=== PATIENT | male | born 1930 | race African-American/Black ===

== ENCOUNTER 2017-11-10 20:30 | Inpatient (IN) | payer MEDICARE, MEDICAID ==
[~2017-11-10] VITALS: Ht 177.8 cm; Wt 83.5 kg
[2017-11-10 20:30] VITALS: BP 137/72
[~2017-11-10 20:30] MED LIST: AMLO10TA4 PO; ASPI-1159 PO; BRIM.2 LEFTEYE; FERR325T6 PO; LATA2.5D2 OP; LISI-604 PO; LOSA50TA3 PO; LOVA20TA2 PO; METF500T4 PO; OMEP20TA15 PO; TRAV2.5D LEFTEYE
[2017-11-10] MEDS ORDERED: DEXTROSE 50% WATER 50ML SYRINGE IV PRN (21:45)
[2017-11-10] MEDS ORDERED: CHLORPROMAZINE HCL 10 MG TABLET PO PRN (22:15)
[2017-11-10] MEDS ORDERED: DOCUSATE SODIUM 250MG CAPSULE PO PRN (22:15)
[2017-11-10] MEDS ORDERED: ONDANSETRON HCL 4MG TABLET PO PRN (22:15)
[2017-11-10] MEDS ORDERED: IPRATROPIUM/ALBUTEROL 0.5-3(2.5)MG/3ML NEB HHN PRN (22:15)
[2017-11-11] MEDS: METRONIDAZOLE 500MG TABLET PO SCH ×4 (01:48→22:44)
[2017-11-11] MEDS: HYDRALAZINE HCL 100MG TABLET PO SCH ×4 (01:48→22:00)
[2017-11-11] MEDS: LATANOPROST 0.005% OPHTH DROPS 2.5ML LEFTEYE SCH ×2 (01:49→22:47)
[2017-11-11] MEDS ORDERED: INSULIN LISPRO 100 UNITS/ML SUBCUT SCH ×2 (06:30→09:00)
[2017-11-11] MEDS: BLOOD SUGAR DIAGNOSTIC STRIP TEST SCH ×4 (06:30→21:00)
[2017-11-11 06:57] LABS: HEMATOCRIT. 33.5 % (42.0-52.0); HEMOGLOBIN. 11.1 g/dL (14.0-18.0); MEAN CORPUSCULAR HEMOGLOBIN 30.1 pg (28.0-32.0); PLATELET 310 x1000/uL (130-400); RED BLOOD CELL COUNT 3.68 mill/uL (4.7-6.1); RED CELL DISTRIBUTION WIDTH 14.5 % (11.6-14.6)
[2017-11-11] MEDS: OMEPRAZOLE 20MG CAPSULE EXTENDED RELEASE PO SCH (07:00)
[2017-11-11 07:21] LABS: CHLORIDE 104 mEq/L (98-107)
[2017-11-11 07:41] LABS: CARBON DIOXIDE 21 mEq/L (21-32); PREALBUMIN 17.3 mg/dL (20.0-40.0)
[2017-11-11 08:00] VITALS: BP 150/68
[2017-11-11] MEDS: INSULIN LISPRO (MEDIUM DOSE) 100 UNITS/ML SUBCUT SCH ×4 (09:00→21:00)
[2017-11-11] MEDS: BRIMONIDINE 0.2% OPHTH DROPS 5ML LEFTEYE SCH ×4 (09:44→22:47)
[2017-11-11] MEDS: ASPIRIN 325MG EC TABLET PO SCH (09:45)
[2017-11-11] MEDS: CARVEDILOL 3.125 MG TABLET PO SCH ×2 (09:46→21:00)
[2017-11-11] MEDS: METOCLOPRAMIDE HCL 10MG TABLET PO SCH ×3 (09:46→17:49)
[2017-11-11] MEDS: CARVEDILOL 12.5MG TABLET PO SCH ×2 (09:46→22:45)
[2017-11-11] MEDS: METFORMIN HCL 500MG TABLET PO SCH ×3 (09:46→17:49)
[2017-11-11] MEDS: LISINOPRIL 20MG TABLET PO SCH ×2 (09:47→23:16)
[2017-11-11] MEDS: AMLODIPINE 10MG TABLET PO SCH (09:47)
[2017-11-11] MEDS: CLOPIDOGREL 75MG TABLET PO SCH (09:47)
[2017-11-11 10:36] LABS: PLATELET ESTIMATE NORMAL
[2017-11-11 20:00] VITALS: BP 147/70
[2017-11-11] MEDS ORDERED: FAMOTIDINE 20MG TABLET PO SCH (21:00)
[2017-11-11] MEDS: ATORVASTATIN CALCIUM 40MG TABLET PO SCH (22:44)
[2017-11-12] MEDS: METRONIDAZOLE 500MG TABLET PO SCH ×3 (06:22→22:16)
[2017-11-12] MEDS: OMEPRAZOLE 20MG CAPSULE EXTENDED RELEASE PO SCH (06:22)
[2017-11-12] MEDS: INSULIN LISPRO (MEDIUM DOSE) 100 UNITS/ML SUBCUT SCH ×4 (06:23→21:00)
[2017-11-12] MEDS: HYDRALAZINE HCL 100MG TABLET PO SCH ×3 (06:23→22:00)
[2017-11-12] MEDS: BLOOD SUGAR DIAGNOSTIC STRIP TEST SCH ×4 (06:23→21:00)
[2017-11-12 07:25] LABS: HEMATOCRIT. 31.9 % (42.0-52.0); HEMOGLOBIN. 10.5 g/dL (14.0-18.0); MEAN CORPUSCULAR VOLUME 91.4 fL (80.0-94.0); MEAN PLATELET VOLUME 11.6 fl (7.4-10.4); PLATELET 294 x1000/uL (130-400); RED BLOOD CELL COUNT 3.49 mill/uL (4.7-6.1); RED CELL DISTRIBUTION WIDTH 14.4 % (11.6-14.6)
[2017-11-12 08:00] VITALS: BP 163/71
[2017-11-12] MEDS: BRIMONIDINE 0.2% OPHTH DROPS 5ML LEFTEYE SCH ×4 (09:15→22:17)
[2017-11-12] MEDS: METFORMIN HCL 500MG TABLET PO SCH ×3 (09:16→17:33)
[2017-11-12] MEDS: CLOPIDOGREL 75MG TABLET PO SCH (09:17)
[2017-11-12] MEDS: CARVEDILOL 12.5MG TABLET PO SCH ×2 (09:17→21:00)
[2017-11-12] MEDS: CARVEDILOL 3.125 MG TABLET PO SCH ×2 (09:17→21:00)
[2017-11-12] MEDS: LISINOPRIL 20MG TABLET PO SCH ×2 (09:18→21:00)
[2017-11-12] MEDS: METOCLOPRAMIDE HCL 10MG TABLET PO SCH ×3 (09:18→17:34)
[2017-11-12] MEDS: ASPIRIN 325MG EC TABLET PO SCH (09:18)
[2017-11-12] MEDS: AMLODIPINE 10MG TABLET PO SCH (09:18)
[2017-11-12 09:42] LABS: PLATELET ESTIMATE NORMAL
[2017-11-12] MEDS: ACETAMINOPHEN 325MG TABLET PO PRN (14:25)
[2017-11-12 20:00] VITALS: BP 111/45
[2017-11-12] MEDS: ATORVASTATIN CALCIUM 40MG TABLET PO SCH (22:16)
[2017-11-12] MEDS: LATANOPROST 0.005% OPHTH DROPS 2.5ML LEFTEYE SCH (22:17)
[2017-11-13 00:01] LABS: CLARITY URINE CLEAR (CLEAR); COLOR URINE YELLOW (YELLOW); KETONES URINE NEGATIVE (NEGATIVE); LEUKOCYTE ESTERASE URINE NEGATIVE (NEGATIVE); NITRITE URINE NEGATIVE (NEGATIVE); OCCULT BLOOD URINE NEGATIVE (NEGATIVE); PROTEIN URINE NEGATIVE (NEGATIVE); SPECIFIC GRAVITY URINE 1.015 (1.005-1.030)
[2017-11-13] MEDS: METRONIDAZOLE 500MG TABLET PO SCH ×3 (06:18→22:37)
[2017-11-13] MEDS: HYDRALAZINE HCL 100MG TABLET PO SCH ×3 (06:18→22:00)
[2017-11-13] MEDS: BLOOD SUGAR DIAGNOSTIC STRIP TEST SCH ×4 (06:19→21:00)
[2017-11-13] MEDS: OMEPRAZOLE 20MG CAPSULE EXTENDED RELEASE PO SCH (06:21)
[2017-11-13 07:05] LABS: HEMATOCRIT. 31.1 % (42.0-52.0); HEMOGLOBIN. 10.3 g/dL (14.0-18.0); MEAN CORPUSCULAR VOLUME 91.2 fL (80.0-94.0); MEAN PLATELET VOLUME 11.3 fl (7.4-10.4); PLATELET 278 x1000/uL (130-400); RED BLOOD CELL COUNT 3.42 mill/uL (4.7-6.1); RED CELL DISTRIBUTION WIDTH 14.3 % (11.6-14.6)
[2017-11-13 07:14] LABS: CARBON DIOXIDE 22 mEq/L (21-32); CHLORIDE 105 mEq/L (98-107); TOTAL IRON BINDING CAPACITY 165 ug/dL (250-450)
[2017-11-13 07:30] LABS: FOLIC ACID (FOLATE) SERUM 15.9 ng/mL (>5.38)
[2017-11-13] MEDS: INSULIN LISPRO (MEDIUM DOSE) 100 UNITS/ML SUBCUT SCH ×4 (07:34→21:00)
[2017-11-13 08:00] VITALS: BP 125/66
[2017-11-13] MEDS: CARVEDILOL 3.125 MG TABLET PO SCH ×2 (09:00→21:00)
[2017-11-13 09:14] LABS: PLATELET ESTIMATE NORMAL
[2017-11-13 12:00] VITALS: BP 125/66
[2017-11-13] MEDS: BRIMONIDINE 0.2% OPHTH DROPS 5ML LEFTEYE SCH ×4 (12:02→22:53)
[2017-11-13] MEDS: AMLODIPINE 10MG TABLET PO SCH (12:03)
[2017-11-13] MEDS: METFORMIN HCL 500MG TABLET PO SCH ×3 (12:03→17:00)
[2017-11-13] MEDS: ASPIRIN 325MG EC TABLET PO SCH (12:03)
[2017-11-13] MEDS: LISINOPRIL 20MG TABLET PO SCH (12:03)
[2017-11-13 12:04] LABS: PROSTRATE SPECIFIC AG TOTAL 0.22 ng/mL (0.0-4.0)
[2017-11-13] MEDS: METOCLOPRAMIDE HCL 10MG TABLET PO SCH ×3 (12:04→18:10)
[2017-11-13] MEDS: CLOPIDOGREL 75MG TABLET PO SCH (12:04)
[2017-11-13] MEDS: CARVEDILOL 12.5MG TABLET PO SCH ×2 (12:04→22:53)
[2017-11-13 14:57] VITALS: BP 128/59
[2017-11-13 20:00] VITALS: BP 135/53
[2017-11-13] MEDS: ATORVASTATIN CALCIUM 40MG TABLET PO SCH (22:37)
[2017-11-13] MEDS: LATANOPROST 0.005% OPHTH DROPS 2.5ML LEFTEYE SCH (22:53)
[2017-11-14] MEDS: LISINOPRIL 20MG TABLET PO SCH ×3 (00:36→21:53)
[2017-11-14] MEDS: HYDRALAZINE HCL 100MG TABLET PO SCH ×3 (06:00→22:48)
[2017-11-14] MEDS: BLOOD SUGAR DIAGNOSTIC STRIP TEST SCH ×4 (06:40→21:50)
[2017-11-14] MEDS: OMEPRAZOLE 20MG CAPSULE EXTENDED RELEASE PO SCH (06:40)
[2017-11-14] MEDS: INSULIN LISPRO (MEDIUM DOSE) 100 UNITS/ML SUBCUT SCH ×4 (06:44→21:00)
[2017-11-14 08:00] VITALS: BP 155/67
[2017-11-14] MEDS: AMLODIPINE 10MG TABLET PO SCH (10:50)
[2017-11-14] MEDS: ASPIRIN 325MG EC TABLET PO SCH (10:50)
[2017-11-14] MEDS: CLOPIDOGREL 75MG TABLET PO SCH (10:50)
[2017-11-14] MEDS: METOCLOPRAMIDE HCL 10MG TABLET PO SCH ×3 (10:50→16:54)
[2017-11-14] MEDS: CARVEDILOL 3.125 MG TABLET PO SCH ×2 (10:51→21:53)
[2017-11-14] MEDS: METFORMIN HCL 500MG TABLET PO SCH ×3 (10:51→16:53)
[2017-11-14] MEDS: CARVEDILOL 12.5MG TABLET PO SCH ×2 (10:51→21:54)
[2017-11-14] MEDS: BRIMONIDINE 0.2% OPHTH DROPS 5ML LEFTEYE SCH ×4 (10:52→21:52)
[2017-11-14 13:40] VITALS: BP 108/48
[2017-11-14 20:00] VITALS: BP 128/64
[2017-11-14] MEDS: ATORVASTATIN CALCIUM 40MG TABLET PO SCH (21:52)
[2017-11-14] MEDS: LATANOPROST 0.005% OPHTH DROPS 2.5ML LEFTEYE SCH (21:56)
[2017-11-15] MEDS: BLOOD SUGAR DIAGNOSTIC STRIP TEST SCH ×4 (06:27→21:47)
[2017-11-15] MEDS: HYDRALAZINE HCL 100MG TABLET PO SCH ×3 (06:28→22:00)
[2017-11-15] MEDS: INSULIN LISPRO (MEDIUM DOSE) 100 UNITS/ML SUBCUT SCH ×4 (06:36→21:54)
[2017-11-15 08:00] VITALS: BP 126/52
[2017-11-15] MEDS: BRIMONIDINE 0.2% OPHTH DROPS 5ML LEFTEYE SCH ×4 (08:21→21:46)
[2017-11-15] MEDS: FAMOTIDINE 20MG TABLET PO SCH (08:22)
[2017-11-15] MEDS: METOCLOPRAMIDE HCL 10MG TABLET PO SCH ×3 (08:22→17:25)
[2017-11-15] MEDS: METFORMIN HCL 500MG TABLET PO SCH ×3 (08:22→17:25)
[2017-11-15] MEDS: ASPIRIN 325MG EC TABLET PO SCH (08:22)
[2017-11-15] MEDS: CLOPIDOGREL 75MG TABLET PO SCH (08:22)
[2017-11-15] MEDS: LACTULOSE 20G/30ML UDC PO SCH ×3 (11:14→13:38)
[2017-11-15] MEDS: AMLODIPINE 10MG TABLET PO SCH (11:15)
[2017-11-15] MEDS: CARVEDILOL 3.125 MG TABLET PO SCH ×2 (11:15→21:46)
[2017-11-15] MEDS: LISINOPRIL 20MG TABLET PO SCH ×2 (11:16→22:59)
[2017-11-15] MEDS: CARVEDILOL 12.5MG TABLET PO SCH ×2 (11:16→21:46)
[2017-11-15] MEDS ORDERED: DOCUSATE SODIUM 250MG CAPSULE PO PRN (15:45)
[2017-11-15 19:51] VITALS: BP 135/67
[2017-11-15] MEDS: ATORVASTATIN CALCIUM 40MG TABLET PO SCH (21:44)
[2017-11-15] MEDS: LATANOPROST 0.005% OPHTH DROPS 2.5ML LEFTEYE SCH (21:46)
[2017-11-15] MEDS: POLYETHYLENE GLYCOL 3350 (17GM) 1 DOSE PACK PO SCH (21:47)
[2017-11-16] MEDS: HYDRALAZINE HCL 100MG TABLET PO SCH ×3 (05:47→22:00)
[2017-11-16 06:16] LABS: BASOPHILS % 0.8 % (0.0-2.0); EOSINOPHILS % 1.2 % (0.0-5.0); HEMATOCRIT. 33.6 % (42.0-52.0); HEMOGLOBIN. 11.2 g/dL (14.0-18.0); LYMPHOCYTES % 18.8 % (20.0-50.0); MEAN CORPUSCULAR HEMOGLOBIN 30.4 pg (28.0-32.0); MEAN CORPUSCULAR VOLUME 91.1 fL (80.0-94.0); MONOCYTES % 14.6 % (2.0-8.0); NEUTROPHILS % 64.6 % (40.0-76.0); PLATELET 226 x1000/uL (130-400); RED BLOOD CELL COUNT 3.69 mill/uL (4.7-6.1); RED CELL DISTRIBUTION WIDTH 13.9 % (11.6-14.6)
[2017-11-16] MEDS: BLOOD SUGAR DIAGNOSTIC STRIP TEST SCH ×4 (06:38→21:25)
[2017-11-16] MEDS: INSULIN LISPRO (MEDIUM DOSE) 100 UNITS/ML SUBCUT SCH ×4 (06:39→21:00)
[2017-11-16 08:32] VITALS: BP 171/87
[2017-11-16] MEDS: CLOPIDOGREL 75MG TABLET PO SCH (08:45)
[2017-11-16] MEDS: LISINOPRIL 20MG TABLET PO SCH ×2 (08:45→21:21)
[2017-11-16] MEDS: METFORMIN HCL 500MG TABLET PO SCH ×3 (08:45→17:36)
[2017-11-16] MEDS: METOCLOPRAMIDE HCL 10MG TABLET PO SCH ×3 (08:45→17:36)
[2017-11-16] MEDS: ASPIRIN 325MG EC TABLET PO SCH (08:45)
[2017-11-16] MEDS: FAMOTIDINE 20MG TABLET PO SCH (08:46)
[2017-11-16] MEDS: AMLODIPINE 10MG TABLET PO SCH (08:46)
[2017-11-16] MEDS: CARVEDILOL 12.5MG TABLET PO SCH ×2 (08:46→21:00)
[2017-11-16] MEDS: CARVEDILOL 3.125 MG TABLET PO SCH ×2 (08:47→22:56)
[2017-11-16] MEDS: BRIMONIDINE 0.2% OPHTH DROPS 5ML LEFTEYE SCH ×4 (08:49→21:25)
[2017-11-16 19:11] LABS: 25-HYDROXY VITAMIN D3 7.2 ng/mL (.)
[2017-11-16 20:00] VITALS: BP 130/62
[2017-11-16] MEDS: POLYETHYLENE GLYCOL 3350 (17GM) 1 DOSE PACK PO SCH (21:00)
[2017-11-16] MEDS: ATORVASTATIN CALCIUM 40MG TABLET PO SCH (21:21)
[2017-11-16] MEDS: LATANOPROST 0.005% OPHTH DROPS 2.5ML LEFTEYE SCH (21:24)
[2017-11-17 06:11] LABS: BASOPHILS % 0.5 % (0.0-2.0); EOSINOPHILS % 1.4 % (0.0-5.0); HEMATOCRIT. 32.2 % (42.0-52.0); HEMOGLOBIN. 10.7 g/dL (14.0-18.0); LYMPHOCYTES % 21.2 % (20.0-50.0); MEAN CORPUSCULAR HEMOGLOBIN 30.3 pg (28.0-32.0); MEAN CORPUSCULAR VOLUME 91.6 fL (80.0-94.0); MEAN PLATELET VOLUME 11.2 fl (7.4-10.4); MONOCYTES % 13.7 % (2.0-8.0); NEUTROPHILS % 63.2 % (40.0-76.0); PLATELET 209 x1000/uL (130-400); RED BLOOD CELL COUNT 3.52 mill/uL (4.7-6.1); RED CELL DISTRIBUTION WIDTH 13.9 % (11.6-14.6)
[2017-11-17] MEDS: HYDRALAZINE HCL 100MG TABLET PO SCH ×3 (06:19→22:00)
[2017-11-17] MEDS: BLOOD SUGAR DIAGNOSTIC STRIP TEST SCH ×4 (06:19→21:58)
[2017-11-17] MEDS: INSULIN LISPRO (MEDIUM DOSE) 100 UNITS/ML SUBCUT SCH ×4 (06:20→21:00)
[2017-11-17 07:27] LABS: AMMONIA 55 uMol/L (<32)
[2017-11-17 08:00] VITALS: BP 148/62
[2017-11-17 08:03] LABS: AMYLASE 115 IU/L (25-115); CARBON DIOXIDE 24 mEq/L (21-32); CHLORIDE 105 mEq/L (98-107)
[2017-11-17] MEDS: BRIMONIDINE 0.2% OPHTH DROPS 5ML LEFTEYE SCH ×4 (09:37→21:51)
[2017-11-17] MEDS: METFORMIN HCL 500MG TABLET PO SCH ×3 (09:38→16:36)
[2017-11-17] MEDS: FAMOTIDINE 20MG TABLET PO SCH (09:38)
[2017-11-17] MEDS: CARVEDILOL 3.125 MG TABLET PO SCH ×2 (09:39→22:07)
[2017-11-17] MEDS: CLOPIDOGREL 75MG TABLET PO SCH (09:39)
[2017-11-17] MEDS: ASPIRIN 325MG EC TABLET PO SCH (09:39)
[2017-11-17] MEDS: AMLODIPINE 10MG TABLET PO SCH (09:39)
[2017-11-17] MEDS: METOCLOPRAMIDE HCL 10MG TABLET PO SCH ×3 (09:40→16:35)
[2017-11-17] MEDS: LISINOPRIL 20MG TABLET PO SCH ×2 (09:41→22:08)
[2017-11-17] MEDS: CARVEDILOL 12.5MG TABLET PO SCH ×2 (09:41→21:00)
[2017-11-17] MEDS ORDERED: LACTULOSE 20G/30ML UDC PO SCH (14:30)
[2017-11-17] MEDS: LACTULOSE 20G/30ML UDC PO SCH (16:36)
[2017-11-17] MEDS ORDERED: ERGOCALCIFEROL 50000UNITS CAPSULE PO SCH (17:00)
[2017-11-17 20:00] VITALS: BP 112/39
[2017-11-17] MEDS: POLYETHYLENE GLYCOL 3350 (17GM) 1 DOSE PACK PO SCH (21:00)
[2017-11-17] MEDS: ATORVASTATIN CALCIUM 40MG TABLET PO SCH (21:49)
[2017-11-17] MEDS: LATANOPROST 0.005% OPHTH DROPS 2.5ML LEFTEYE SCH (21:51)
[2017-11-18] MEDS: HYDRALAZINE HCL 100MG TABLET PO SCH ×3 (05:53→22:46)
[2017-11-18] MEDS: INSULIN LISPRO (MEDIUM DOSE) 100 UNITS/ML SUBCUT SCH ×4 (05:56→21:00)
[2017-11-18] MEDS: BLOOD SUGAR DIAGNOSTIC STRIP TEST SCH ×4 (05:56→21:49)
[2017-11-18] MEDS: ACETAMINOPHEN 325MG TABLET PO PRN (08:04)
[2017-11-18 08:28] VITALS: BP 147/66
[2017-11-18 08:31] LABS: AMMONIA 62 uMol/L (<32)
[2017-11-18] MEDS: AMLODIPINE 10MG TABLET PO SCH (09:00)
[2017-11-18] MEDS: CARVEDILOL 12.5MG TABLET PO SCH ×2 (09:00→21:45)
[2017-11-18] MEDS: LISINOPRIL 20MG TABLET PO SCH ×2 (09:00→21:45)
[2017-11-18] MEDS: LACTULOSE 20G/30ML UDC PO SCH ×3 (09:00→16:27)
[2017-11-18] MEDS: CARVEDILOL 3.125 MG TABLET PO SCH ×2 (10:09→21:45)
[2017-11-18] MEDS: METOCLOPRAMIDE HCL 10MG TABLET PO SCH ×3 (10:09→16:32)
[2017-11-18] MEDS: FAMOTIDINE 20MG TABLET PO SCH (10:09)
[2017-11-18] MEDS: METFORMIN HCL 500MG TABLET PO SCH ×3 (10:09→16:32)
[2017-11-18] MEDS: ASPIRIN 325MG EC TABLET PO SCH (10:09)
[2017-11-18] MEDS: CLOPIDOGREL 75MG TABLET PO SCH (10:09)
[2017-11-18] MEDS: BRIMONIDINE 0.2% OPHTH DROPS 5ML LEFTEYE SCH ×4 (10:12→21:46)
[2017-11-18 10:30] VITALS: BP_SYST 118; BP_SYST 139; BP_SYST 146; BP_DIAS 58; BP_DIAS 63; BP_DIAS 68
[2017-11-18 20:00] VITALS: BP 131/67
[2017-11-18] MEDS: POLYETHYLENE GLYCOL 3350 (17GM) 1 DOSE PACK PO SCH (21:00)
[2017-11-18] MEDS: ATORVASTATIN CALCIUM 40MG TABLET PO SCH (21:45)
[2017-11-18] MEDS: LATANOPROST 0.005% OPHTH DROPS 2.5ML LEFTEYE SCH (21:48)
[2017-11-19 05:44] LABS: BASOPHILS % 0.8 % (0.0-2.0); EOSINOPHILS % 1.3 % (0.0-5.0); HEMATOCRIT. 30.2 % (42.0-52.0); HEMOGLOBIN. 10.1 g/dL (14.0-18.0); MEAN CORPUSCULAR HEMOGLOBIN 30.8 pg (28.0-32.0); MEAN CORPUSCULAR VOLUME 91.5 fL (80.0-94.0); MONOCYTES % 14.7 % (2.0-8.0); NEUTROPHILS % 62.2 % (40.0-76.0); PLATELET 193 x1000/uL (130-400)
[2017-11-19] MEDS: HYDRALAZINE HCL 100MG TABLET PO SCH ×3 (05:44→21:09)
[2017-11-19] MEDS: INSULIN LISPRO (MEDIUM DOSE) 100 UNITS/ML SUBCUT SCH ×4 (05:44→21:08)
[2017-11-19] MEDS: BLOOD SUGAR DIAGNOSTIC STRIP TEST SCH ×4 (05:44→21:00)
[2017-11-19 05:57] LABS: CARBON DIOXIDE 24 mEq/L (21-32); CHLORIDE 103 mEq/L (98-107)
[2017-11-19 06:05] LABS: AMMONIA 29 uMol/L (<32)
[2017-11-19 08:17] VITALS: BP 145/50
[2017-11-19] MEDS: LACTULOSE 20G/30ML UDC PO SCH ×3 (08:26→16:30)
[2017-11-19] MEDS: METFORMIN HCL 500MG TABLET PO SCH ×3 (08:39→16:27)
[2017-11-19] MEDS: ASPIRIN 325MG EC TABLET PO SCH (08:40)
[2017-11-19] MEDS: CARVEDILOL 3.125 MG TABLET PO SCH ×2 (08:40→21:09)
[2017-11-19] MEDS: FAMOTIDINE 20MG TABLET PO SCH (08:40)
[2017-11-19] MEDS: CARVEDILOL 12.5MG TABLET PO SCH ×2 (08:41→21:12)
[2017-11-19] MEDS: AMLODIPINE 10MG TABLET PO SCH (08:41)
[2017-11-19] MEDS: CLOPIDOGREL 75MG TABLET PO SCH (08:41)
[2017-11-19] MEDS: LISINOPRIL 20MG TABLET PO SCH ×2 (08:42→21:13)
[2017-11-19] MEDS: BRIMONIDINE 0.2% OPHTH DROPS 5ML LEFTEYE SCH ×4 (08:42→22:59)
[2017-11-19] MEDS: METOCLOPRAMIDE HCL 10MG TABLET PO SCH ×3 (08:42→16:27)
[2017-11-19] MEDS ORDERED: CHLORPROMAZINE HCL 25 MG TABLET PO PRN (18:30)
[2017-11-19 20:45] VITALS: BP 117/59
[2017-11-19] MEDS: POLYETHYLENE GLYCOL 3350 (17GM) 1 DOSE PACK PO SCH (21:00)
[2017-11-19] MEDS: ATORVASTATIN CALCIUM 40MG TABLET PO SCH (21:09)
[2017-11-19] MEDS: LATANOPROST 0.005% OPHTH DROPS 2.5ML LEFTEYE SCH (22:59)
[2017-11-20] MEDS: HYDRALAZINE HCL 100MG TABLET PO SCH ×2 (05:24→13:14)
[2017-11-20] MEDS: BLOOD SUGAR DIAGNOSTIC STRIP TEST SCH ×2 (06:30→11:15)
[2017-11-20 08:20] VITALS: BP 103/36
[2017-11-20 08:43] LABS: AMMONIA 48 uMol/L (<32)
[2017-11-20] MEDS: INSULIN LISPRO (MEDIUM DOSE) 100 UNITS/ML SUBCUT SCH ×2 (09:00→12:20)
[2017-11-20] MEDS: AMLODIPINE 10MG TABLET PO SCH (09:51)
[2017-11-20] MEDS: CLOPIDOGREL 75MG TABLET PO SCH (09:52)
[2017-11-20] MEDS: CARVEDILOL 12.5MG TABLET PO SCH (09:52)
[2017-11-20] MEDS: CARVEDILOL 3.125 MG TABLET PO SCH (09:52)
[2017-11-20] MEDS: FAMOTIDINE 20MG TABLET PO SCH (09:52)
[2017-11-20] MEDS: LISINOPRIL 20MG TABLET PO SCH (09:52)
[2017-11-20] MEDS: METFORMIN HCL 500MG TABLET PO SCH ×2 (09:53→13:14)
[2017-11-20] MEDS: ASPIRIN 325MG EC TABLET PO SCH (09:53)
[2017-11-20] MEDS: BRIMONIDINE 0.2% OPHTH DROPS 5ML LEFTEYE SCH ×2 (09:53→13:15)
[2017-11-20 15:51] VITALS: BP 133/79
[2017-11-20] MEDS ORDERED: ATORVASTATIN CALCIUM 10MG TABLET PO SCH (21:00)
== END 2017-11-20 16:10 | DRG 280 ==
PROVIDERS: ADMIT Physical Medicine & Rehabilitation Spinal Cord Injury Medicine; ATTEND Anesthesiology Critical Care Medicine
DX: I21.4 Non-ST elevation (NSTEMI) myocardial infarction (principal); G93.41 Metabolic encephalopathy; A41.9 Sepsis, unspecified organism; K85.90 Acute pancreatitis without necrosis or infection, unspecified; E46 Unspecified protein-calorie malnutrition; N17.9 Acute kidney failure, unspecified; K56.0 Paralytic ileus; E87.1 Hypo-osmolality and hyponatremia; E87.2 Acidosis; R13.10 Dysphagia, unspecified; E11.22 Type 2 diabetes mellitus with diabetic chronic kidney disease; E83.39 Other disorders of phosphorus metabolism; J44.9 Chronic obstructive pulmonary disease, unspecified; N18.2 Chronic kidney disease, stage 2 (mild); I12.9 Hypertensive chronic kidney disease with stage 1 through stage 4 chronic kidney disease, or unspecified chronic kidney disease; E87.6 Hypokalemia; H40.9 Unspecified glaucoma; E78.5 Hyperlipidemia, unspecified; E86.0 Dehydration; I25.10 Atherosclerotic heart disease of native coronary artery without angina pectoris; R62.7 Adult failure to thrive; T50.8X5A Adverse effect of diagnostic agents, initial encounter; N14.1 Nephropathy induced by other drugs, medicaments and biological substances; K52.9 Noninfective gastroenteritis and colitis, unspecified; F06.31 Mood disorder due to known physiological condition with depressive features; F06.8 Other specified mental disorders due to known physiological condition; E86.1 Hypovolemia; E55.9 Vitamin D deficiency, unspecified; D53.9 Nutritional anemia, unspecified; R26.9 Unspecified abnormalities of gait and mobility; M19.90 Unspecified osteoarthritis, unspecified site; D69.6 Thrombocytopenia, unspecified; Z79.84 Long term (current) use of oral hypoglycemic drugs; Z85.46 Personal history of malignant neoplasm of prostate; Z90.79 Acquired absence of other genital organ(s); I25.2 Old myocardial infarction; Z87.891 Personal history of nicotine dependence; Z68.26 Body mass index [BMI] 26.0-26.9, adult
CPT/HCPCS: 36415; 80048; 80053; 81003; 82140; 82150; 82270; 82306; 82607; 82728; 82746; 82962; 83036; 83540; 83550; 83690; 83735; 84100; 84134; 84153; 84443; 84630; 85025; 87015; 87045; 87086; 87427; 87449; 89055; 92523; 92610; 93970; 97110; 97112; 97116; 97150; 97162; 97167; 97530; 97535; J1815; J8597; Q0161